=== PATIENT | female | born 1950 | race African-American/Black ===

== ENCOUNTER → 2016-04-26 | Outpatient (REF) ==
[~2016-04-26] MED LIST: PRINIVIL2.5 MG PO; TENORMIN 2525 MG/TAB PO
== END ==
LOC: ZLAB.WCH 10:35
DX: Z01.89 Encounter for other specified special examinations (principal)

== ENCOUNTER → 2018-07-08 | Outpatient (CLI) | payer OTHER | LOC: MC.RAD 11:33 | DX: Z12.31 Encounter for screening mammogram for malignant neoplasm of breast (principal) ==